=== PATIENT | female | born 1985 | race Caucasian/White ===

== ENCOUNTER 2016-07-14 10:14 | Day surgery (SDC) | payer MEDICAID ==
[~2016-07-14 10:14] MED LIST: ALEVE220 M2 PO; BAYER BACK PO; CALAN80 M1 PO; CALCIUM PO; DULERA 100 MCG/13 G1 INH; EXCEDRIN MIGRA1 EAC3 PO; INTEGRA CAPSUL1 EACH PO; MOTRIN800 MG PO; MULTIVITAMINS1 EAC6 PO; NASONEX17 GM NS; OMEPRAZOLE20 M4 PO; PERCOCET 5/3251 TAB PO; PROAIR HFA8.5 GM INH; PROZAC20 M3 PO; SINGULAIR10 M1 PO; SINGULAIR10 MG PO; XANAX0.25 M1 PO; ZYRTEC10 M7 PO; [UNRECOGNIZED DRUG - OTHER] EACH EYE; [UNRECOGNIZED DRUG - OTHER] PO
== END 2016-07-14 16:35 ==
LOC: SRG 10:14 → SHSC 10:17 → ORW 12:08 → PACU 13:13 → SHSB 13:56
PROC: 0CBPXZZ Excision of Tonsils, External Approach (ICD-10-PCS; principal; 2016-07-14)
DX: J35.1 Hypertrophy of tonsils (principal); Z79.899 Other long term (current) drug therapy
CPT/HCPCS: J2270; J2405; J3010